=== PATIENT | female | born 1980 | race Two or more races ===

== ENCOUNTER 2018-04-04 06:00 | Day surgery (SDC) | payer OTHER ==
[~2018-04-04 06:00] MED LIST: CALAN SR120 MG PO; CLONAZEPAM1 MG PO; CYMBALTA60 MG PO; FLEXERIL PO; METFORMIN HCL500 MG PO; NEURONTIN800 MG PO; NORVASC5 MG PO; PLETAL PO; PRILOSEC OTC20 MG PO; SEROQUEL XR300 MG PO; TRAMADOL HCL50 MG PO; ZANTAC300 MG PO; ZOCOR20 MG PO
[2018-04-04] MEDS ORDERED: DUI500 PO (10:05)
[2018-04-04] MEDS ORDERED: TRAM1TAB98 PO (10:05)
== END 2018-04-04 12:00 | disposition home or self-care (01) ==
LOC: CIR.AMB 06:00
DX: M67.52 Plica syndrome, left knee (principal); M65.862 Other synovitis and tenosynovitis, left lower leg

== ENCOUNTER 2020-04-18 06:03 | Day surgery (SDC) | payer OTHER ==
[~2020-04-18 06:03] MED LIST changes: +COZAAR25 MG PO; +DUI500 PO; +EFFEXOR XR150 MG PO; +LEXAPRO20 MG PO; +TRAM1TAB98 PO
[2020-04-18] MEDS ORDERED: ULTRAM50 MG PO (14:47)
[2020-04-18] MEDS ORDERED: COLACE100 MG PO (14:48)
== END 2020-04-18 17:20 | disposition home or self-care (01) ==
LOC: CIR.AMB 06:03
PROVIDERS: ATTEND Obstetrics & Gynecology Gynecologic Oncology
DX: D27.1 Benign neoplasm of left ovary (principal); N83.11 Corpus luteum cyst of right ovary; D27.0 Benign neoplasm of right ovary; N80.1 Endometriosis of ovary; Z20.828 Contact with and (suspected) exposure to other viral communicable diseases